=== PATIENT | female | born 1970 | race Caucasian/White ===

== ENCOUNTER → 2016-09-29 | Outpatient (CLI) | payer MEDICAID ==
[~2016-09-29] MED LIST: CELE100C PO; LIRA0.6P SQ; METF500T4 PO; TRAM50TA2 PO
== END | disposition home or self-care (01) ==
LOC: EDSTATUS 16:00 → RAD 17:42
PROVIDERS: ATTEND Emergency Medicine
DX: M79.662 Pain in left lower leg (principal)

== ENCOUNTER 2016-10-03 16:36 | Emergency (ER) | payer MEDICAID ==
[~2016-10-03] VITALS: Ht 160 cm; Wt 113.5 kg
[2016-10-03 16:38] VITALS: BP 112/74
[2016-10-03] MEDS ORDERED: SODIUM CHLORIDE FLUSH 10ML SYR IVF ONE (17:30)
[2016-10-03] MEDS ORDERED: HYDROcodone/APAP 5/325 TABLET PO ONE (17:30)
[2016-10-03] MEDS ORDERED: CLINDAMYCIN PMX 900MG/50ML 50 ML IVPB ONE (17:30)
[2016-10-03] MEDS ORDERED: HYDROcodone/APAP 5/325 TABLET ONE (17:36)
[2016-10-03] MEDS ORDERED: CLINDAMYCIN PMX 900MG/50ML 50 ML ONE (17:41)
[2016-10-03 18:03] LABS: BLOOD UREA NITROGEN 16 mg/dL (7-18)
[2016-10-03] MEDS ORDERED: CYCL-259 PO (18:05)
[2016-10-03] MEDS ORDERED: GABA300C10 PO (18:05)
[2016-10-03] MEDS ORDERED: ATOR20TA9 PO (18:05)
[2016-10-03] MEDS ORDERED: HYDR25TA6 PO (18:05)
[2016-10-03] MEDS ORDERED: OMEP40CA6 PO (18:05)
[2016-10-03] MEDS ORDERED: IBUP200T48 PO (18:05)
[2016-10-03] MEDS ORDERED: SPIR25TA3 PO (18:05)
[2016-10-03] MEDS ORDERED: TRAZ100T15 PO (18:05)
[2016-10-03] MEDS ORDERED: LEVO150T5 PO (18:05)
[2016-10-03] MEDS ORDERED: IVAB5TAB PO (18:05)
[2016-10-03] MEDS ORDERED: INSU300I INJ (18:05)
[2016-10-03] MEDS ORDERED: ALOG25TA2 PO (18:05)
[2016-10-03] MEDS ORDERED: METF10002 PO (18:05)
== END 2016-10-03 19:19 | disposition home or self-care (01) ==
LOC: ED 19:00
DX: L03.032 Cellulitis of left toe (principal); E11.9 Type 2 diabetes mellitus without complications; K21.9 Gastro-esophageal reflux disease without esophagitis; E03.9 Hypothyroidism, unspecified
CPT/HCPCS: 36415; 80048; 82040; 85025; 96365

== ENCOUNTER → 2018-05-14 | Outpatient (CLI) | payer MEDICAID ==
[~2018-05-14] MED LIST changes: +ALOG25TA2 PO; +ATOR20TA37 PO; +CYCL-259 PO; +GABA300C10 PO; +HYDR25TA6 PO; +IBUP200T49 PO; +INSU300I INJ; +IVAB5TAB PO; +LEVO150T5 PO; +METF10002 PO; +METF500T17 PO; -METF500T4 PO; +OMEP40CA6 PO; +SPIR25TA5 PO; +TRAZ-137 PO
== END | disposition home or self-care (01) ==
LOC: CVU 06:43
PROVIDERS: ATTEND Internal Medicine Cardiovascular Disease
DX: I35.1 Nonrheumatic aortic (valve) insufficiency (principal); I35.8 Other nonrheumatic aortic valve disorders; E11.9 Type 2 diabetes mellitus without complications
CPT/HCPCS: 93306

== ENCOUNTER → 2018-07-04 | Outpatient (CLI) | payer MEDICAID | END | disposition home or self-care (01) | LOC: CVU 10:19 | PROVIDERS: ATTEND Internal Medicine Cardiovascular Disease | DX: M79.89 Other specified soft tissue disorders (principal) | CPT/HCPCS: 93971 ==